=== PATIENT | female | born 1965 | race Caucasian/White ===

== ENCOUNTER → 2016-09-29 | Outpatient (CLI) | payer BC ==
[~2016-09-29] MED LIST: GLUC1TAB21 PO; MULT-658 PO; OMEG1CAP34 PO; OXYC-302 PO; denies
[2016-09-29 11:57] LABS: BLOOD UREA NITROGEN 16 mg/dL (7-18)
[2016-09-29 12:02] LABS: ASPARTATE AMINO TRANSFERASE 11 U/L (15-37)
== END | disposition home or self-care (01) ==
LOC: STAR 09:53
PROVIDERS: ATTEND Orthopaedic Surgery Adult Reconstructive Orthopaedic Surgery
DX: Z01.812 Encounter for preprocedural laboratory examination (principal); T84.195A Other mechanical complication of internal fixation device of left femur, initial encounter; R79.1 Abnormal coagulation profile; Z96.642 Presence of left artificial hip joint
CPT/HCPCS: 36415; 80053; 81003; 85025; 85610; 85730; 87081

== ENCOUNTER 2016-10-12 09:32 | Inpatient (IN) | payer BC ==
[~2016-10-12] VITALS: Ht 167.6 cm; Wt 113.9 kg
[~2016-10-12 09:32] MED LIST changes: +ASPI-496 PO; +CETI10TA24 PO; +Fish Oil PO; +MULT-115 PO; +TRANEXAMIC ACID 100 MG/ML, 10ML ONE; +VANCOMYCIN 1,000 MG ONE
[2016-10-12] MEDS ORDERED: LACTATED RINGERS 1,000 ML IV SCH (10:31)
[2016-10-12] MEDS ORDERED: VANCOMYCIN PER PHARMACY MC STA (10:39)
[2016-10-12] MEDS ORDERED: VANCOMYCIN 1,600 MG in SODIUM CHLORIDE 0.9% 250 ML IV ONE (11:00)
[2016-10-12] MEDS ORDERED: KETAMINE 10 MG/ML, 20ML ONE (11:40)
[2016-10-12] MEDS ORDERED: FENTANYL PF 250 MCG/5ML ONE (11:40)
[2016-10-12] MEDS ORDERED: DEXAMETHASONE 4 MG/ML, 1ML ONE (11:44)
[2016-10-12] MEDS ORDERED: METOCLOPRAMIDE 5 MG/ML, 2ML ONE (11:44)
[2016-10-12] MEDS ORDERED: PROPOFOL 10 MG/ML, 20ML ONE (11:44)
[2016-10-12] MEDS ORDERED: ONDANSETRON 2MG/ML, 2ML ONE ×2 (11:44→14:53)
[2016-10-12] MEDS ORDERED: ROCURONIUM 10 MG/ML ONE (11:44)
[2016-10-12] MEDS ORDERED: CEFAZOLIN 1,000 MG ONE (11:44)
[2016-10-12] MEDS ORDERED: HYDROmorphone 1 MG/ML, 1ML ONE (12:22)
[2016-10-12] MEDS ORDERED: PROMETHAZINE 25 MG/ML, 1ML IV PRN (12:30)
[2016-10-12] MEDS ORDERED: HYDROmorphone 1 MG/ML, 1ML IV PRN ×2 (12:30→14:00)
[2016-10-12] MEDS ORDERED: OXYcodone 5 MG/5 ML ORAL.SOL UDC PO PRN (12:30)
[2016-10-12] MEDS ORDERED: MIDAZOLAM 1 MG/ML, 2ML IV PRN (12:30)
[2016-10-12] MEDS ORDERED: ONDANSETRON 2MG/ML, 2ML IVPush PRN (12:30)
[2016-10-12] MEDS ORDERED: hydrALAzine 20 MG/ML, 1ML IV PRN (12:30)
[2016-10-12] MEDS ORDERED: FENTANYL PF 100 MCG/2ML IV PRN (12:30)
[2016-10-12] MEDS ORDERED: MEPERIDINE/PF 25MG/0.5ML IVPush PRN (12:30)
[2016-10-12] MEDS ORDERED: LABETALOL 5MG/ML, 20ML IV PRN (12:30)
[2016-10-12] MEDS ORDERED: BISACODYL 10 MG SUPP PR PRN (14:00)
[2016-10-12] MEDS ORDERED: ACETAMINOPHEN 650 MG/20.3 ML UDC PO SCH (14:00)
[2016-10-12] MEDS ORDERED: PROMETHAZINE 25 MG/ML, 1ML IM PRN (14:00)
[2016-10-12] MEDS ORDERED: DIAZEPAM 5 MG TABLET PO PRN (14:00)
[2016-10-12] MEDS ORDERED: MAGNESIUM HYDROXIDE 8%, 30ML UDC PO PRN (14:00)
[2016-10-12] MEDS ORDERED: PROMETHAZINE 12.5 MG SUPP PR PRN (14:00)
[2016-10-12] MEDS ORDERED: CEFAZOLIN PMX 2GM/50ML 50 ML IVPB SCH (14:00)
[2016-10-12] MEDS ORDERED: SENNA/DOCUSATE TABLET PO PRN (14:00)
[2016-10-12] MEDS ORDERED: ALUMINUM/MAG/SIMETHICONE 30 ML UDC PO PRN (14:00)
[2016-10-12] MEDS ORDERED: ONDANSETRON 4 MG TABLET PO PRN (14:00)
[2016-10-12] MEDS ORDERED: DIPHENHYDRAMINE 25 MG CAPSULE PO PRN (14:00)
[2016-10-12] MEDS ORDERED: OXYcodone 5 MG/5 ML ORAL.SOL UDC ONE (14:04)
[2016-10-12] MEDS ORDERED: MEPERIDINE/PF 25MG/0.5ML ONE (14:04)
[2016-10-12] MEDS ORDERED: FENTANYL PF 100 MCG/2ML ONE (14:04)
[2016-10-12] MEDS ORDERED: TRANEXAMIC ACID 1,500 MG in SODIUM CHLORIDE 0.9% 100 ML IVPB ONE (14:20)
[2016-10-12] MEDS: ONDANSETRON 2MG/ML, 2ML IV PRN ×2 (14:56→21:52)
[2016-10-12 15:27] VITALS: BP 132/88
[2016-10-12] MEDS ORDERED: SCOPOLAMINE PATCH, 1.5MG PATCH.TD72 TD SCH (15:28)
[2016-10-12] MEDS: D5%-0.45% NACL 1,000 ML IV SCH ×2 (15:56→22:13)
[2016-10-12] MEDS: OXYcodone IR 5MG TABLET PO PRN ×2 (18:10→22:12)
[2016-10-12 19:03] VITALS: BP 114/75
[2016-10-12] MEDS: DOCUSATE 100 MG CAPSULE PO SCH (21:52)
[2016-10-12 23:52] VITALS: BP 108/71
[2016-10-13] MEDS: OXYcodone IR 5MG TABLET PO PRN ×5 (02:28→20:55)
[2016-10-13 03:19] VITALS: BP 124/76
[2016-10-13] MEDS: D5%-0.45% NACL 1,000 ML IV SCH ×3 (05:56→21:56)
[2016-10-13] MEDS ORDERED: DEXAMETHASONE 4 MG/ML, 1ML IVPush SCH (06:00)
[2016-10-13] MEDS: ASPIRIN 81 MG TABLET EC PO SCH ×3 (06:08→20:54)
[2016-10-13 08:08] VITALS: BP 113/75
[2016-10-13] MEDS: TAMSULOSIN 0.4 MG CAP.ER.24H PO SCH (09:00)
[2016-10-13] MEDS: CETIRIZINE 10 MG TABLET PO SCH (10:39)
[2016-10-13] MEDS: MULTIVITAMINS/MINERALS TABLET PO SCH (10:39)
[2016-10-13] MEDS: DOCUSATE 100 MG CAPSULE PO SCH ×2 (10:39→20:54)
[2016-10-13] MEDS: MULTIVITAMIN 1 TABLET PO SCH (10:39)
[2016-10-13 12:44] VITALS: BP 129/79
[2016-10-13] MEDS: KETOROLAC 30 MG/1 ML IV SCH ×2 (15:10→22:32)
[2016-10-13] MEDS ORDERED: ASPIRIN 325 MG TABLET EC PO SCH (18:00)
[2016-10-13 20:18] VITALS: BP 122/80
[2016-10-14] MEDS: OXYcodone IR 5MG TABLET PO PRN ×3 (02:05→10:38)
[2016-10-14 02:28] VITALS: BP 113/74
[2016-10-14] MEDS: D5%-0.45% NACL 1,000 ML IV SCH (05:56)
[2016-10-14] MEDS: KETOROLAC 30 MG/1 ML IV SCH (07:00)
[2016-10-14 07:07] VITALS: BP 131/86
[2016-10-14] MEDS: TAMSULOSIN 0.4 MG CAP.ER.24H PO SCH (09:00)
[2016-10-14] MEDS ORDERED: ASPI-496 PO (10:21)
[2016-10-14] MEDS: ASPIRIN 81 MG TABLET EC PO SCH (10:38)
[2016-10-14] MEDS: DOCUSATE 100 MG CAPSULE PO SCH (10:38)
[2016-10-14] MEDS: MULTIVITAMINS/MINERALS TABLET PO SCH (10:38)
[2016-10-14] MEDS: MULTIVITAMIN 1 TABLET PO SCH (10:38)
[2016-10-14] MEDS: CETIRIZINE 10 MG TABLET PO SCH (10:38)
[2016-10-14] MEDS ORDERED: OXYC5CAP4 PO (10:46)
[2016-10-14] MEDS ORDERED: ONDA4TAB10 PO (10:48)
[2016-10-14] MEDS ORDERED: DOCU-30 PO (10:49)
[2016-10-14 11:37] VITALS: BP 114/76
== END 2016-10-14 12:11 | disposition home or self-care (01) | DRG 468 ==
LOC: ORIP 09:43 → MERGE 11:30 → 4NOR 15:23
PROVIDERS: ADMIT Orthopaedic Surgery Adult Reconstructive Orthopaedic Surgery; ATTEND Orthopaedic Surgery Adult Reconstructive Orthopaedic Surgery
PROC: 0SPB09Z Removal of Liner from Left Hip Joint, Open Approach (ICD-10-PCS; 2016-10-12)
PROC: 0SUE09Z Supplement Left Hip Joint, Acetabular Surface with Liner, Open Approach (ICD-10-PCS; 2016-10-12)
PROC: 0SPE0JZ Removal of Synthetic Substitute from Left Hip Joint, Acetabular Surface, Open Approach (ICD-10-PCS; 2016-10-12)
PROC: 0SRE03A Replacement of Left Hip Joint, Acetabular Surface with Ceramic Synthetic Substitute, Uncemented, Open Approach (ICD-10-PCS; principal; 2016-10-12 11:30)
DX: T84.091A Other mechanical complication of internal left hip prosthesis, initial encounter (principal); Z91.048 Other nonmedicinal substance allergy status; Z91.09 Other allergy status, other than to drugs and biological substances
CPT/HCPCS: 36415; 72170; 85014; 85018; 86850; 86900; C1713; J0690; J1100; J1170; J1885; J2405; J2704; J3010; J3370; C1776; J2765; J7050; J7120